=== PATIENT | female | born 1995 | race Caucasian/White ===

== ENCOUNTER 2023-08-07 22:20 | Emergency (ER) | payer SELFPAY ==
[2023-08-07] MEDS ORDERED: Lidocaine 1% (PF) 30 ML VIAL ONE (22:36)
[2023-08-07] MEDS ORDERED: Boostrix 0.5 ML (Tdap) VIAL (>/=7 yrs of age) ONE (22:51)
[2023-08-07] MEDS ORDERED: Sulfameth/Trimethoprim DS 800-160mg TAB ONE (23:10)
== END 2023-08-07 23:14 | disposition home or self-care (01) ==
LOC: NAV ERS 22:20
DX: L02.31 Cutaneous abscess of buttock (principal); Z23 Encounter for immunization; Z79.899 Other long term (current) drug therapy
CPT/HCPCS: 10060; 87070; 87077; 87186; 87205; 90471; 90715; J2001